=== PATIENT | male | born 1985 | race Caucasian/White ===

== ENCOUNTER 2016-10-11 12:45 | Emergency (ER) | payer OTHER ==
[~2016-10-11] VITALS: Ht 193 cm; Wt 100.0 kg
[2016-10-11 12:54] VITALS: BP 166/92
[2016-10-11] MEDS ORDERED: KETOROLAC 30 MG/1 ML ONE (13:17)
[2016-10-11] MEDS ORDERED: KETOROLAC 30 MG/1 ML IM ONE (13:30)
== END 2016-10-11 14:01 | disposition home or self-care (01) ==
LOC: ED 13:45
DX: S69.91XA Unspecified injury of right wrist, hand and finger(s), initial encounter (principal); M77.8 Other enthesopathies, not elsewhere classified; Z88.0 Allergy status to penicillin; X58.XXXA Exposure to other specified factors, initial encounter; Y93.89 Activity, other specified; Y92.89 Other specified places as the place of occurrence of the external cause; Y99.8 Other external cause status
CPT/HCPCS: 29125; 73110; 96372; 99284; J1885

== ENCOUNTER 2016-11-14 11:38 | Emergency (ER) | payer OTHER ==
[~2016-11-14] VITALS: Ht 193 cm; Wt 103.0 kg
[2016-11-14 11:44] VITALS: BP 156/88
[2016-11-14] MEDS ORDERED: KETOROLAC 30 MG/1 ML ONE (12:46)
[2016-11-14] MEDS ORDERED: KETOROLAC 30 MG/1 ML IM ONE (13:00)
== END 2016-11-14 13:31 | disposition home or self-care (01) ==
LOC: ED 13:22
DX: S63.521A Sprain of radiocarpal joint of right wrist, initial encounter (principal); M77.9 Enthesopathy, unspecified; W19.XXXA Unspecified fall, initial encounter; Y93.89 Activity, other specified; Y92.89 Other specified places as the place of occurrence of the external cause; Y99.8 Other external cause status
CPT/HCPCS: 73110; 96372; 99284; J1885